=== PATIENT | female | born 1955 | race Caucasian/White ===

== ENCOUNTER 2018-02-03 01:29 | Inpatient (IN) | payer MEDICAID ==
[~2018-02-03] VITALS: Ht 152.4 cm; Wt 52.0 kg
[2018-02-03] MEDS ORDERED: DIPH,PERTUSS(ACELL),TET VAC/PF 0.5 ML IM-VACC ONE (03:00)
[2018-02-03] MEDS ORDERED: CLINDAMYCIN PMX 600MG/50ML 50 ML IV ONE (03:00)
[2018-02-03] MEDS ORDERED: SODIUM CHLORIDE FLUSH 10ML SYR IVF ONE (03:00)
[2018-02-03 03:02] LABS: MEAN CORPUSCULAR HEMOGLOBIN 29.5 pg (27.0-34.8); MEAN CORPUSCULAR HGB CONC 33.4 g/dL (32.4-35.8); MEAN CORPUSCULAR VOLUME 88.3 fL (80-100); MEAN PLATELET VOLUME 8.3 fL (7.4-10.4); PLATELET COUNT 322 x10^3/uL (130-400); RED BLOOD COUNT 4.32 x10^6/uL (3.82-5.3); RED CELL DISTRIBUTION WIDTH 12.6 % (9.6-15.2)
[2018-02-03] MEDS ORDERED: CLINDAMYCIN PMX 600MG/50ML 50 ML ONE (03:07)
[2018-02-03 03:13] LABS: ALBUMIN 2.8 g/dL (3.4-5.0); ANION GAP 6 mmol/L (5-15); CALCIUM 9.1 mg/dL (8.5-10.1); CHLORIDE 104 mmol/L (98-107); CREATININE 0.72 mg/dL (0.55-1.02)
[2018-02-03 03:15] LABS: CREATINE KINASE, TOTAL 82 U/L (26-192)
[2018-02-03 03:18] LABS: BASOPHILS # (AUTO) 0.04 x10^3/uL (0-0.1); BASOPHILS % (AUTO) 0 % (0-1); EOSINOPHILS # (AUTO) 0.11 x10^3/uL (0-0.4); EOSINOPHILS % (AUTO) 1 % (1-7); LYMPHOCYTES # (AUTO) 1.79 x10^3/uL (1-3.4); LYMPHOCYTES % (AUTO) 17 % (22-44); MD SCAN; MONOCYTES # (AUTO) 0.79 x10^3/uL (0.2-0.8); MONOCYTES % (AUTO) 8 % (2-9); NEUTROPHILS # (AUTO) 7.57 x10^3/uL (1.8-6.8); NEUTROPHILS % (AUTO) 74 % (42-75)
[2018-02-03] MEDS ORDERED: SODIUM CHLORIDE 0.9% 1,000 ML IV ONE (04:45)
[2018-02-03] MEDS ORDERED: ONDANSETRON 2MG/ML, 2ML IVPush PRN ×2 (05:00→13:00)
[2018-02-03] MEDS ORDERED: DOCUSATE 100 MG CAPSULE PO PRN (05:30)
[2018-02-03] MEDS ORDERED: LABETALOL 5MG/ML, 20ML IVPush PRN (05:30)
[2018-02-03] MEDS ORDERED: ONDANSETRON ODT 4 MG PO PRN (05:30)
[2018-02-03] MEDS: NICOTINE 14MG/24 HR PATCH.TD24 TD SCH (05:54)
[2018-02-03 06:02] VITALS: BP 123/80
[2018-02-03] MEDS: D5%-0.45NACL+KCL 20MEQ 1,000 ML IV SCH ×2 (06:20→21:03)
[2018-02-03 07:59] VITALS: BP 135/73
[2018-02-03] MEDS: FAMOTIDINE 20 MG/2 ML IVPush SCH ×3 (08:34→20:36)
[2018-02-03] MEDS ORDERED: METHADONE 10 MG TABLET ONE (08:49)
[2018-02-03] MEDS: METHADONE 10 MG TABLET PO SCH (09:00)
[2018-02-03] MEDS ORDERED: METHADONE 40 MG TABLET.SOL PO SCH (09:00)
[2018-02-03] MEDS: CLINDAMYCIN PMX 900MG/50ML 50 ML IV SCH ×2 (11:00→18:30)
[2018-02-03] MEDS ORDERED: SUFentanil 50 MCG/ML, 1ML ONE (12:03)
[2018-02-03] MEDS ORDERED: MIDAZOLAM 1 MG/ML, 2ML ONE (12:05)
[2018-02-03] MEDS ORDERED: CLINDAMYCIN 150 MG/ML, 6ML ONE (12:11)
[2018-02-03] MEDS ORDERED: ROCURONIUM 10 MG/ML,10ML ONE (12:15)
[2018-02-03] MEDS ORDERED: SUCCINYLCHOLINE 20 MG/ML, 10ML ONE (12:15)
[2018-02-03] MEDS ORDERED: ONDANSETRON ODT 8 MG ONE ×2 (12:27)
[2018-02-03] MEDS ORDERED: PROPOFOL 10 MG/ML, 20ML ONE (12:42)
[2018-02-03] MEDS ORDERED: ONDANSETRON 2MG/ML, 2ML ONE (12:42)
[2018-02-03] MEDS ORDERED: CEFAZOLIN 1,000 MG ONE (12:42)
[2018-02-03] MEDS ORDERED: DEXAMETHASONE 4 MG/ML, 1ML ONE (12:42)
[2018-02-03] MEDS ORDERED: FENTANYL PF 100 MCG/2ML IV PRN (13:00)
[2018-02-03] MEDS ORDERED: MIDAZOLAM 1 MG/ML, 2ML IV PRN (13:00)
[2018-02-03] MEDS ORDERED: LORazepam 2 MG/ML, 1ML IVPush PRN (13:00)
[2018-02-03] MEDS ORDERED: ACETAMINOPHEN 325 MG TABLET PO PRN (13:00)
[2018-02-03] MEDS ORDERED: hydrALAzine 20 MG/ML, 1ML IV PRN (13:00)
[2018-02-03] MEDS ORDERED: morphine SULFATE 10 MG/ML, 1ML IV PRN (13:00)
[2018-02-03] MEDS ORDERED: LABETALOL 5MG/ML, 20ML IV PRN (13:00)
[2018-02-03] MEDS ORDERED: ALBUTEROL/IPRATROPIUM 2.5MG/0.5MG, 3 ML NPPB PRN (13:00)
[2018-02-03] MEDS ORDERED: OXYcodone 5 MG/5 ML ORAL.SOL UDC PO PRN (13:00)
[2018-02-03] MEDS ORDERED: METOCLOPRAMIDE 5 MG/ML, 2ML IV PRN (13:00)
[2018-02-03] MEDS ORDERED: DIAZEPAM 5 MG/ML, 2ML IVPush PRN (13:00)
[2018-02-03] MEDS ORDERED: PROMETHAZINE 25 MG/ML, 1ML IV PRN (13:00)
[2018-02-03] MEDS ORDERED: MEPERIDINE/PF 25MG/0.5ML IVPush PRN (13:00)
[2018-02-03 15:00] VITALS: BP 142/73
[2018-02-03 18:27] VITALS: BP 114/74
[2018-02-03 21:29] VITALS: BP 117/69
[2018-02-03 23:41] VITALS: BP 111/57
[2018-02-04 01:40] VITALS: BP 127/56
[2018-02-04] MEDS: CLINDAMYCIN PMX 900MG/50ML 50 ML IV SCH ×3 (03:28→19:35)
[2018-02-04 05:26] LABS: BASOPHILS # (AUTO) 0.05 x10^3/uL (0-0.1); BASOPHILS % (AUTO) 1 % (0-1); EOSINOPHILS % (AUTO) 0 % (1-7); LYMPHOCYTES # (AUTO) 1.31 x10^3/uL (1-3.4); LYMPHOCYTES % (AUTO) 15 % (22-44); MD NO; MEAN CORPUSCULAR HEMOGLOBIN 29.9 pg (27.0-34.8); MEAN CORPUSCULAR HGB CONC 33.6 g/dL (32.4-35.8); MEAN CORPUSCULAR VOLUME 89.1 fL (80-100); MONOCYTES # (AUTO) 0.78 x10^3/uL (0.2-0.8); MONOCYTES % (AUTO) 9 % (2-9); NEUTROPHILS # (AUTO) 6.74 x10^3/uL (1.8-6.8); NEUTROPHILS % (AUTO) 76 % (42-75); PLATELET COUNT 395 x10^3/uL (130-400)
[2018-02-04 05:35] LABS: ALANINE AMINOTRANSFERASE 25 U/L (12-78); ALBUMIN 2.3 g/dL (3.4-5.0); ANION GAP 8 mmol/L (5-15); CALCIUM 8.6 mg/dL (8.5-10.1); CHLORIDE 107 mmol/L (98-107); CREATININE 0.66 mg/dL (0.55-1.02)
[2018-02-04 05:37] LABS: ALKALINE PHOSPHATASE 104 U/L (45-117); BILIRUBIN,TOTAL 0.2 mg/dL (0.2-1.0); TOTAL PROTEIN 6.5 g/dL (6.4-8.2)
[2018-02-04] MEDS: NICOTINE 14MG/24 HR PATCH.TD24 TD SCH (05:58)
[2018-02-04 06:57] VITALS: BP 108/55
[2018-02-04] MEDS: D5%-0.45NACL+KCL 20MEQ 1,000 ML IV SCH (08:44)
[2018-02-04] MEDS: METHADONE 10 MG TABLET PO SCH (08:44)
[2018-02-04] MEDS: FAMOTIDINE 20 MG/2 ML IVPush SCH (08:46)
[2018-02-04] MEDS ORDERED: VANCOMYCIN PER PHARMACY MC PRN (12:30)
[2018-02-04 12:48] LABS: ABSOLUTE RETICS # 0.01 x10^6/uL (0.5-2.5); RED BLOOD COUNT 3.52 x10^6/uL (3.82-5.3); RETICULOCYTE COUNT % 0.29 % (0.5-1.5)
[2018-02-04 13:45] VITALS: BP 118/68
[2018-02-04] MEDS ORDERED: PHARMACOKINETIC MONITORING MC PRN (14:00)
[2018-02-04] MEDS ORDERED: PHARMACOKINETIC CONSULTATION MC ONE (14:00)
[2018-02-04] MEDS: VANCOMYCIN PMX 1GM/200ML 200 ML IV SCH (14:23)
[2018-02-04 21:18] VITALS: BP 146/85
[2018-02-05 03:09] VITALS: BP 139/71
[2018-02-05] MEDS: CLINDAMYCIN PMX 900MG/50ML 50 ML IV SCH ×3 (03:27→20:25)
[2018-02-05 05:19] LABS: ANION GAP 9 mmol/L (5-15); CALCIUM 8.2 mg/dL (8.5-10.1); CHLORIDE 108 mmol/L (98-107); CREATININE 0.73 mg/dL (0.55-1.02)
[2018-02-05 05:34] LABS: BASOPHILS # (AUTO) 0.11 x10^3/uL (0-0.1); BASOPHILS % (AUTO) 2 % (0-1); EOSINOPHILS # (AUTO) 0.14 x10^3/uL (0-0.4); EOSINOPHILS % (AUTO) 2 % (1-7); LYMPHOCYTES # (AUTO) 2.66 x10^3/uL (1-3.4); LYMPHOCYTES % (AUTO) 41 % (22-44); MD NO; MEAN CORPUSCULAR HEMOGLOBIN 29.2 pg (27.0-34.8); MEAN CORPUSCULAR HGB CONC 32.8 g/dL (32.4-35.8); MEAN PLATELET VOLUME 8.4 fL (7.4-10.4); MONOCYTES % (AUTO) 8 % (2-9); NEUTROPHILS # (AUTO) 3.14 x10^3/uL (1.8-6.8); NEUTROPHILS % (AUTO) 48 % (42-75); PLATELET COUNT 364 x10^3/uL (130-400); RED BLOOD COUNT 3.48 x10^6/uL (3.82-5.3); RED CELL DISTRIBUTION WIDTH 13.1 % (9.6-15.2)
[2018-02-05 07:07] VITALS: BP 138/81
[2018-02-05] MEDS: NICOTINE 14MG/24 HR PATCH.TD24 TD SCH (08:54)
[2018-02-05] MEDS: METHADONE 10 MG TABLET PO SCH (08:55)
[2018-02-05 13:10] VITALS: BP 125/79
[2018-02-05] MEDS: IRON SUCROSE COMPLEX 100MG/5ML IV SCH (15:11)
[2018-02-05] MEDS: VANCOMYCIN PMX 1GM/200ML 200 ML IV SCH (15:12)
[2018-02-05] MEDS: TRAZODONE 50MG TABLET PO PRN ×2 (18:17→19:14)
[2018-02-05 20:34] VITALS: BP 145/83
[2018-02-06 03:26] VITALS: BP_SYST 115; BP_SYST 145; BP_DIAS 61; BP_DIAS 84
[2018-02-06] MEDS: CLINDAMYCIN PMX 900MG/50ML 50 ML IV SCH ×2 (05:53→13:35)
[2018-02-06] MEDS: ACETAMINOPHEN 325 MG TABLET PO PRN ×2 (05:53→13:37)
[2018-02-06 06:37] VITALS: BP 135/77
[2018-02-06] MEDS: NICOTINE 14MG/24 HR PATCH.TD24 TD SCH (09:23)
[2018-02-06] MEDS: METHADONE 10 MG TABLET PO SCH (09:24)
[2018-02-06] MEDS: IRON SUCROSE COMPLEX 100MG/5ML IV SCH (09:29)
[2018-02-06] MEDS ORDERED: MAGNESIUM HYDROXIDE 8%, 30ML UDC ONE (13:09)
[2018-02-06] MEDS ORDERED: FERR324T5 PO (14:05)
[2018-02-06] MEDS ORDERED: SULF1TAB24 PO (14:05)
[2018-02-06] MEDS ORDERED: IBUP-1222 PO (14:55)
[2018-02-06] MEDS ORDERED: ACET325T14 PO (14:55)
[2018-02-06 14:56] VITALS: BP 136/79
[2018-02-06] MEDS: VANCOMYCIN PMX 1GM/200ML 200 ML IV SCH (15:00)
[2018-02-06] MEDS ORDERED: FLU VACC QS2017-18 (36MOS+) UP/PF 0.5 ML IM-VACC ONE (15:30)
[2018-02-06] MEDS ORDERED: PNEUMOCOCCAL 23 VACCINE IM-VACC ONE (15:30)
== END 2018-02-06 16:35 | disposition home or self-care (01) | DRG 603 ==
LOC: ED 04:24 → EDIP 04:52 → 4NOR 05:39
PROVIDERS: ADMIT Internal Medicine; ATTEND Internal Medicine
PROC: 0X990ZZ Drainage of Left Upper Arm, Open Approach (ICD-10-PCS; principal; 2018-02-03 12:45)
DX: L02.414 Cutaneous abscess of left upper limb (principal); B95.62 Methicillin resistant Staphylococcus aureus infection as the cause of diseases classified elsewhere; D50.9 Iron deficiency anemia, unspecified; F11.10 Opioid abuse, uncomplicated; F12.10 Cannabis abuse, uncomplicated; F17.200 Nicotine dependence, unspecified, uncomplicated; L03.114 Cellulitis of left upper limb; F19.10 Other psychoactive substance abuse, uncomplicated; Z23 Encounter for immunization
CPT/HCPCS: 36415; 80048; 80053; 82040; 82550; 82728; 83540; 83550; 83735; 85025; 85045; 87040; 87070; 87075; 87077; 87186; 87205; 90686; 90732; 96365; 96366; J0690; J1100; J1756; J2250; J2405; J2704; J3370; Q0162; J0330; J3480; J7030; S0028